=== PATIENT | male | born 1985 | race Caucasian/White ===

== ENCOUNTER 2022-02-25 02:20 | Emergency (ER) | payer BC ==
[~2022-02-25] VITALS: Ht 175.3 cm; Wt 82.0 kg
[2022-02-25 02:34] VITALS: BP 119/87
[2022-02-25] MEDS ORDERED: ASPIRIN 81MG TABLET PO ONE (03:15)
[2022-02-25] MEDS ORDERED: LORAZEPAM 0.5MG TABLET PO ONE (03:15)
[2022-02-25 03:35] LABS: BASOPHILS % 0.2 % (0.0-2.0); EOSINOPHILS % 0.1 % (0.0-5.0); HEMATOCRIT. 43.1 % (42.0-52.0); HEMOGLOBIN. 14.5 g/dL (14.0-18.0); LYMPHOCYTES % 17.2 % (20.0-50.0); MEAN CORPUSCULAR HEMOGLOBIN 28.7 pg (28.0-32.0); MEAN CORPUSCULAR VOLUME 85.5 fL (80.0-94.0); MEAN PLATELET VOLUME 9.2 fl (7.4-10.4); MONOCYTES % 4.6 % (2.0-8.0); NEUTROPHILS % 77.9 % (40.0-76.0); PLATELET 240 x1000/uL (130-400); RED BLOOD CELL COUNT 5.04 mill/uL (4.7-6.1); RED CELL DISTRIBUTION WIDTH 12.9 % (11.6-14.6)
[2022-02-25 03:49] LABS: CHLORIDE 106 mEq/L (98-107)
[2022-02-25 03:59] LABS: ETHANOL BLOOD < 10 mg/dL
== END 2022-02-25 03:54 | disposition left against medical advice (07) ==
LOC: ER 02:20
DX: R07.89 Other chest pain (principal)
CPT/HCPCS: 36415; 80053; 80320; 84484; 85025; 93005; 99284; Z7610; G0480